=== PATIENT | male | born 1955 | race Caucasian/White ===

== ENCOUNTER 2020-02-28 08:14 | Day surgery (SDC) | payer BC, OTHER ==
[~2020-02-28 08:14] MED LIST: Lactated Ringers 1,000 ML IV SCH; Sodium Chloride 0.9% 10 ML Syringe FLUSH PRN
[2020-02-28] MEDS ORDERED: Propofol 200 MG/20 ML SDV IV ONE (08:15)
[2020-02-28] MEDS ORDERED: Midazolam 1 MG/ML 2 ML SDV IV ONE (08:15)
--- NOTE | 2020-02-28 10:07 | PCM.OPNOTE ---
- General Post-Op/Procedure Note Date of Surgery/Procedure: 02/28/20 Operative Procedure(s): c scope with cold forceps biopsy Findings: descending colon polyp Pre Op Diagnosis: screening Post-Op Diagnosis: colon polyp Anesthesia Technique: MAC Primary Surgeon: Ricki Vance Anesthesia Provider: Miriam Nicolas Pathology: descending colon polyp Complications: None Condition: Good Free Text/Narrative:: see dictation [id number]
--- NOTE | 2020-02-28 11:42 | OR ---
DATE OF OPERATION: 02/28/2020 SURGEON: Ricki Vance MD PROCEDURE PERFORMED: Colonoscopy. PREOPERATIVE DIAGNOSIS: Need for colon cancer screening. POSTOPERATIVE DIAGNOSIS: Descending colon polyp. INDICATIONS FOR PROCEDURE: This is a 64-year-old white male who presents for a screening colonoscopy. He is without complaints. DESCRIPTION OF PROCEDURE: After an excellent IV sedation was administered, digital rectal exam was performed. No marked abnormality was noted. Flexible colonoscope was inserted and advanced without difficulty to the cecum. Prep was excellent. The following findings were noted: Ascending colon unremarkable. Transverse colon unremarkable. Descending colon: Distal descending colon, a small 5 mm polyp, biopsied with cold biopsy forceps. This was not amenable to the hot loop snare. Sigmoid unremarkable. Rectum and anus unremarkable. The patient tolerated the procedure well. Results will be sent to the patient via letter. /[id number] /[id number]
== END 2020-02-28 10:25 | disposition home or self-care (01) ==
LOC: FB.SDS 08:14
PROVIDERS: ATTEND Surgery
DX: Z12.11 Encounter for screening for malignant neoplasm of colon (principal); D12.4 Benign neoplasm of descending colon; I50.9 Heart failure, unspecified; I11.0 Hypertensive heart disease with heart failure; E66.01 Morbid (severe) obesity due to excess calories; Z79.899 Other long term (current) drug therapy; Z98.890 Other specified postprocedural states; Z68.41 Body mass index [BMI] 40.0-44.9, adult
CPT/HCPCS: 00812-QZ; J2250; J2704; J7120